=== PATIENT | female | born 1995 ===

== ENCOUNTER 2017-01-31 16:03 | Emergency (ER) | payer SELFPAY ==
[2017-01-31 16:08] VITALS: BP 134/77; PULSE 101; RESP 20; TEMP 98.2; O2SAT 100
--- NOTE | 2017-01-31 17:23 | ED PDOC ---
HPI: Abdomen Time Seen by Provider: 01/31/17 16:29 Chief Complaint (Nursing): Abdominal Pain Chief Complaint (Provider): Abdominal Pain History Per: Patient History/Exam Limitations: no limitations Onset/Duration Of Symptoms: Days (2x) Severity: Moderate Location Of Pain/Discomfort: Periumbilical Associated Symptoms: Fever, Chills, Back Pain (bilateral), Urinary Symptoms ( burning, increase in frequency), Other (headache). denies: Nausea, Vomiting, Diarrhea Additional Complaint(s): 22 year old female 14 weeks , presents to the ED with complaints of periumbilical abdominal pain that started 2x days ago. She also complains of bilateral back pain, burning with urinating, and increased frequency. She denies having any vaginal bleeding or discharge, nausea, vomiting, and diarrhea. PMD: Murphy Browning MD Abnormal Vaginal Bleeding: No : 1 Para: 0 Past Medical History Reviewed: Historical Data, Nursing Documentation, Vital Signs Vital Signs: Last Vital Signs Temp 98.2 F 01/31/17 16:08 Pulse 101 H 01/31/17 16:08 Resp 20 01/31/17 16:08 BP 134/77 01/31/17 16:08 Pulse Ox 100 01/31/17 23:32 - Medical History PMH: No Chronic Diseases - Surgical History Surgical History: No Surg Hx - Family History Family History: States: Unknown Family Hx - Social History Current smoker - smoking cessation education provided: No Alcohol: None Drugs: Denies - Home Medications Home Medications: Ambulatory Orders Medication Instructions Recorded Cephalexin [cephalexin] 500 mg PO Q6 #40 cap 01/31/17 - Allergies Allergies/Adverse Reactions: Allergies Allergy/AdvReac Type Severity Reaction Status Date / Time No Known Allergies Allergy Verified 01/31/17 16:07 Review of Systems ROS Statement: Except As Marked, All Systems Reviewed And Found Negative Constitutional: Positive for: Fever, Chills Gastrointestinal: Positive for: Abdominal Pain. Negative for: Nausea, Vomiting , Diarrhea Genitourinary Female: Positive for: Dysuria, Frequency. Negative for: Hematuria , Vaginal Discharge, Vaginal Bleeding Musculoskeletal: Positive for: Back Pain (bilateral) Neurological: Positive for: Headache Physical Exam - Reviewed Nursing Documentation Reviewed: Yes Vital Signs Reviewed: Yes - Physical Exam Appears: Positive for: Well, Non-toxic, No Acute Distress Head Exam: Positive for: ATRAUMATIC, NORMOCEPHALIC Skin: Positive for: Normal Color, Warm, Dry Eye Exam: Positive for: Normal appearance Cardiovascular/Chest: Positive for: Regular Rate, Rhythm Respiratory: Positive for: Normal Breath Sounds. Negative for: Respiratory Distress Gastrointestinal/Abdominal: Positive for: Tenderness (epigastric and suprapubic tenderness) Back: Positive for: Normal Inspection Neurologic/Psych: Positive for: Alert, Oriented (3x) - Laboratory Results Result Diagrams: 01/31/17 15:00 01/31/17 17:20 - ECG O2 Sat by Pulse Oximetry: 100 (RA) Pulse Ox Interpretation: Normal Medical Decision Making Medical Decision Makin:29 Initial impression: 22 year old female 14 weeks with periumbilical pain and urinary symptoms. Differential diagnoses include but are not limited to UTI, pyelonephritis, and complication. Initial plan: * US OB , limited * US renal * CMP * udip * CBC * blood culture * urine culture * tylenol 650mg PO * reevaluation 19:00 Patient will be signed out by me to Last Barksdale MD pending US, reevaluation, and final disposition. Scribe Attestation: Documented by Clara Hazel acting as a scribe for Jessie Day MD MD Scribe Attestation: All medical record entries made by the Scribe were at my direction and personally dictated by me. I have reviewed the chart and agree that the record accurately reflects my personal performance of the history, physical exam, medical decision making, and the department course for this patient. I have also personally directed, reviewed, and agree with the discharge instructions and disposition. Disposition - Clinical Impression Clinical Impression: Pyelonephritis affecting - Patient ED Disposition Is Patient to be Admitted: Transfer of Care Counseled Patient/Family Regarding: Studies Performed, Diagnosis - Disposition Disposition: Transfer of Care Disposition Time: 19:00 Condition: FAIR Prescriptions: Cephalexin [cephalexin] 500 mg PO Q6 #40 cap Instructions: Acute Pyelonephritis (ED), Urinary Tract Infection in ( ED) Print Language: ESTONIAN
[2017-01-31 17:35] LABS: BASO # 0.1 K/uL (0.0-0.2); BASO % 0.7 % (0.0-2.0); EOS # 0.4 K/uL (0.0-0.7); EOS % 4.3 % (0.0-4.0); HEMATOCRIT 32.9 % (34.0-47.0); LYMPH # 1.6 K/uL (1.0-4.3); LYMPH % 16.1 % (20.0-40.0); MEAN CELL VOLUME 89.2 fl (81.0-99.0); MEAN CORPUSCULAR HGB CONC 33.6 g/dL (33.0-37.0); MEAN PLATELET VOLUME 8.2 fl (7.2-11.7); MONO # 0.7 K/uL (0.0-0.8); MONO % 6.6 % (0.0-10.0); NEUT # 7.3 K/uL (1.8-7.0); NEUT % 72.3 % (50.0-75.0); RED CELL DISTRIBUTION WIDTH 13.5 % (11.5-14.5); WHITE BLOOD COUNT 10.1 K/uL (4.8-10.8)
[2017-01-31 17:41] LABS: CHLORIDE 105 mmol/L (98-107); POTASSIUM 3.8 MMOL/L (3.6-5.0); SODIUM 136 mmol/l (132-148)
[2017-01-31 17:43] LABS: BILIRUBIN,TOTAL 0.5 mg/dl (0.2-1.3); CARBON DIOXIDE 19 mmol/L (22-30); GFR AFRICAN-AMERICAN > 60
[2017-01-31 17:44] LABS: ALB/GLOB RATIO 1.1 (1.0-2.1); ALKALINE PHOSPHATASE 44 U/L (38-126); ALT/SGPT 26 U/L (9-52); AST/SGOT 29 U/L (14-36); BLOOD UREA NITROGEN 10 mg/dl (7-17); CALCIUM 9.1 mg/dL (8.4-10.2); GLUCOSE,RANDOM 86 mg/dL (65-105); TOTAL PROTEIN 7.2 G/DL (6.3-8.2)
--- NOTE | 2017-01-31 19:24 | ED PDOC ---
- Laboratory Results Result Diagrams: 01/31/17 15:00 01/31/17 17:20 - ECG O2 Sat by Pulse Oximetry: 100 (RA) Medical Decision Making Medical Decision Makin:00 Patient will be signed out to me by Jessie Day MD pending US, reevaluation, and final disposition. 23:30 Patient feels better. patient will follow up with [facility]. Patient give Rx. Discussed results and plan with patient who expresses understanding. Counseling was provided regarding the diagnosis and prognosis. All questions answered and there is agreement with the plan to discharge home with instructions. Patient stable for discharge. Return if symptoms persist or worsen. Scribe Attestation: Documented by Clara Hazel, acting as a scribe for Last Barksdale MD. Provider Scribe Attestation: All medical record entries made by the Scribe were at my direction and personally dictated by me. I have reviewed the chart and agree that the record accurately reflects my personal performance of the history, physical exam, medical decision making, and the department course for this patient. I have also personally directed, reviewed, and agree with the discharge instructions and disposition. [facility] Division of Radiology [address] [place] [address] Tel. no. Patient Name: BIANKA JOSEPH Pt. Address: [address] [place] [address]. Rec #: [id number] [place] [address]: Barb NUNEZ, Jessie Quiroz Pt CELL Order Location: [facility] : 1995 Female Age: 22 Order #: [id number] Reason for exam: abdominal pain preg Ultrasound OB , LIMITED Exam Date: 01/31/17 This imaging exam was performed at [facility] EXAM: US After First Trimester, Transabdominal CLINICAL HISTORY: 22 years old, female; Pain; Other: Abd pain; Gestational age or lmp: 10/12/16; ; Additional info: Abdominal pain preg TECHNIQUE: Real-time transabdominal obstetrical ultrasound of the maternal pelvis and a second or third trimester with image documentation. EXAM DATE/TIME: 01/31/2017 4:45 PM COMPARISON: There are no prior studies for comparison. FINDINGS: Fetus: There is a single live intrauterine gestation in variable presentation. There is a heart rate of 156 beats per minute. Placenta: Placenta is posterior with no previa. Amniotic fluid: Amnionic fluid volume appears normal Anatomy: Early gestational age limits evaluation of anatomy. BIOMETRICS Gestational age by US: 16 weeks 1 day EFW: 141 g BPD: 34.4 mm HC: 123.5 mm AC: 100.6 mm FL: 19.6 mm MATERNAL: Adnexa: there are no adnexal masses. Cervix: Cervix measures approximately 4 cm in length. IMPRESSION: 16 week 1 day single living intrauterine gestation, estimated date of delivery 07/17/17 Dictated By: Kaylynn Mcintyre MD, MD Dictated Date/Time: 01/31/172129 Signed By: Kaylynn Mcintyre MD Date Signed: [id number] Transcribed By: CORRY Transcribe Date/Time : 01/31/172129 KELLI/LORNA -- PROCEDURE: Ultrasound of the Kidneys HISTORY: back pain, dysuria COMPARISON: None available. TECHNIQUE: Sonogram of the kidneys. FINDINGS: RIGHT KIDNEY: Measures: 11.3 x 3.8 x 5.6 cm. Normal in size, contour and echogenicity. No stone, solid mass lesion or hydronephrosis visualized. LEFT KIDNEY: Measures: 11.1 x 5.2 x 5.2 cm. Normal in size, contour and echogenicity. No stone, solid mass lesion or hydronephrosis visualized. OTHER FINDINGS: None. IMPRESSION: Unremarkable renal sonogram. Disposition Counseled Patient/Family Regarding: Studies Performed, Diagnosis, Need For Followup, Rx Given - Clinical Impression Clinical Impression: Pyelonephritis affecting - POA Present On Arrival: None - Disposition Disposition: Routine/Home Disposition Time: 23:30 Condition: STABLE Prescriptions: Cephalexin [cephalexin] 500 mg PO Q6 #40 cap Instructions: Acute Pyelonephritis (ED), Urinary Tract Infection in ( ED) Print Language: TAIWANESE
[2017-01-31 20:24] LABS: RBC URINE 4 /hpf (0-3); URINE BACTERIA RARE (<OCC); URINE BILIRUBIN NEGATIVE (NEGATIVE); URINE BLOOD NEGATIVE (NEGATIVE); URINE COLOR YELLOW (YELLOW); URINE GLUCOSE (UA) NEG (Normal); URINE KETONE NEGATIVE (NEGATIVE); URINE LEUKOCYTE ESTERASE MOD Leu/uL (Negative); URINE PROTEIN NEGATIVE (NEGATIVE); URINE UROBILINOGEN 0.2-1.0 mg/dL (0.2-1.0); WBC URINE 8 /hpf (0-5)
--- NOTE | 2017-01-31 21:30 | US ---
EXAM: US After First Trimester, Transabdominal CLINICAL HISTORY: 22 years old, female; Pain; Other: Abd pain; Gestational age or lmp: 10/12/16; ; Additional info: Abdominal pain preg TECHNIQUE: Real-time transabdominal obstetrical ultrasound of the maternal pelvis and a second or third trimester with image documentation. EXAM DATE/TIME: 01/31/2017 4:45 PM COMPARISON: There are no prior studies for comparison. FINDINGS: Fetus: There is a single live intrauterine gestation in variable presentation. There is a heart rate of 156 beats per minute. Placenta: Placenta is posterior with no previa. Amniotic fluid: Amnionic fluid volume appears normal Anatomy: Early gestational age limits evaluation of anatomy. BIOMETRICS Gestational age by US: 16 weeks 1 day EFW: 141 g BPD: 34.4 mm HC: 123.5 mm AC: 100.6 mm FL: 19.6 mm MATERNAL: Adnexa: there are no adnexal masses. Cervix: Cervix measures approximately 4 cm in length. IMPRESSION: 16 week 1 day single living intrauterine gestation, estimated date of delivery 07/17/17
--- NOTE | 2017-01-31 23:17 | US ---
PROCEDURE: Ultrasound of the Kidneys HISTORY: back pain, dysuria COMPARISON: None available. TECHNIQUE: Sonogram of the kidneys. FINDINGS: RIGHT KIDNEY: Measures: 11.3 x 3.8 x 5.6 cm. Normal in size, contour and echogenicity. No stone, solid mass lesion or hydronephrosis visualized. LEFT KIDNEY: Measures: 11.1 x 5.2 x 5.2 cm. Normal in size, contour and echogenicity. No stone, solid mass lesion or hydronephrosis visualized. OTHER FINDINGS: None. IMPRESSION: Unremarkable renal sonogram.
[2017-01-31] MEDS ORDERED: cefTRIAXone (Rocephin) 1 gm Inj ONE (23:35)
== END 2017-02-01 00:54 | disposition home or self-care (01) ==
LOC: H.ER 16:03
DX: O23.00 Infections of kidney in pregnancy, unspecified trimester (principal); M54.9 Dorsalgia, unspecified; R30.0 Dysuria; Z3A.14 14 weeks gestation of pregnancy